=== PATIENT | male | born 1945 | race Caucasian/White ===

== ENCOUNTER → 2017-02-12 | Outpatient (CLI) | payer BC ==
--- NOTE | 2017-02-12 14:06 | MRI ---
HISTORY: Low back pain. Study: MRI lumbar spine without contrast. Comparison: None. Technique: Multiplanar multi-sequence MRI of the lumbar spine was obtained. Sagittal T1, sagittal T 2, and stir weighted images, axial T1, and axial T2 images were obtained. Findings: Anatomic alignment without fracture or listhesis. Multilevel disc desiccation without significant di sc height loss. The visualized bone marrow otherwise demonstrates normal signal characteristics. The conus medullaris terminates at L1. The visualized soft tissues are unremarkable. Benign appearing T arlov cysts are seen posterior to the S2 and S3 vertebral bodies. L1 -- L2: No significant disc bulge, neural foraminal narrowing, or spinal canal stenosis. L2 -- L3: No significant disc bulge, neural foraminal narrowing, or spinal canal stenosis. L3 -- L4: Broad-based disc bulge that extends into the lateral recesses causing moderate bilateral n eural foraminal narrowing. Spinal canal stenosis to 11 mm. L4 -- L5: Broad-based disc bulge with associated central disc protrusion causing moderate to severe bilateral neural foraminal narrowing and spinal canal stenosis to 9 mm. There is contact without sig nificant displacement of the bilateral descending L5 nerve roots. These otherwise demonstrate normal signal characteristics. L5 -- S1: Broad-based disc bulge that extends into the lateral recesses causing moderate bilateral n eural foraminal narrowing. No significant spinal canal stenosis. Multilevel mild/moderate facet/ligamentum flavum hypertrophy. IMPRESSION: Multilevel degenerative changes of the lumbar spine, which are worse at L3 through S1 wi th broad-based disc bulges causing moderate to severe neural foraminal narrowing. Multilevel spinal canal stenosis to 9 mm. Reported By:
--- NOTE | 2017-02-12 14:06 | RAD ---
Examination: X-rays of the hips bilaterally. Clinical history: Low back and hip pain. Technique: An AP view of the pelvis and frog-leg lateral views of both hips were obtained. Comparison: None available. Findings: No acute fracture, dislocation, or destructive bony lesion is noted. No arthropathy is appreciated at the hips bilaterally. Degenerative changes are noted in the visuali zed portion of the lumbar spine. A soft tissue opacity is seen overlying the pelvis, likely a partially filled bladder. Calcific dens ities are seen overlying the pelvis, likely due to phleboliths. Impression: 1. No acute fracture or dislocation. Reported By:
== END | disposition home or self-care (01) ==
LOC: RAD 12:54
PROVIDERS: ATTEND Psychiatry & Neurology Neurology
DX: M54.41 Lumbago with sciatica, right side (principal)
CPT/HCPCS: 72148; 73521

== ENCOUNTER → 2018-01-07 | Outpatient (CLI) | payer BC ==
--- NOTE | 2018-01-07 14:25 | VAS ---
Exam: Carotid Doppler exam History: 72-year-old male with dark film intermittent noted over right eye. Evaluate for carotid molina ry stenosis. Comparison: None Findings: Minimal plaque is present in both carotid systems On the right, peak systolic velocities in cm/sec of the right internal and common carotid artery nicki ure 91 and 80 respectively. The greatest ICA/CCA ratio on the right is 1.14 On the left, peak systolic velocities in cm/sec of the left internal and common carotid artery measur e 96 and 69. The greatest ICA/CCA ratio on the left is 1.37. Antegrade flow is documented in patent vertebral arteries bilaterally. Impression: No hemodynamically significant carotid stenosis is seen on either side. Reported By:
== END ==
LOC: RAD 13:03
PROVIDERS: ATTEND Family Medicine
DX: H53.121 Transient visual loss, right eye (principal); H53.9 Unspecified visual disturbance; E78.2 Mixed hyperlipidemia; I25.10 Atherosclerotic heart disease of native coronary artery without angina pectoris
CPT/HCPCS: 93880